=== PATIENT | female | born 1990 | race Caucasian/White ===

== ENCOUNTER → 2017-12-18 | Outpatient (REF) | payer OTHER ==
[2017-12-18 13:30] LABS: HEMATOCRIT 32.3 % (36.0-47.0); HEMOGLOBIN 9.7 g/dl (12.0-15.5); MEAN CORPUSCULAR HEMOGLOBIN 22.9 pg (27.0-33.0); MEAN CORPUSCULAR VOLUME 76.2 fl (80.0-96.0); PLATELET COUNT, AUTOMATED 246 10^3/uL (150-450); RED BLOOD COUNT 4.24 10^6/uL (4.00-5.40); WHITE BLOOD COUNT 6.2 10^3/uL (4.0-10.0)
[2017-12-18 14:04] LABS: HCG, SERUM QUANTITATIVE 25344 MIU/ML
[2017-12-19 10:57] LABS: RUBELLA IgG QUALITATIVE IMMUNE (IMMUNE)
[2017-12-19 11:11] LABS: HBsAg Prenatal NEGATIVE (NEGATIVE)
[2017-12-19 11:27] LABS: HIV 1&2 SCREEN CENTAUR NEGATIVE (NEGATIVE)
[2017-12-19 11:27] LABS: HEPATITIS C VIRUS ABY INDEX 0.1 INDEX (<0.8)
== END ==
LOC: M LAB REF 13:03
DX: O36.80X0 Pregnancy with inconclusive fetal viability, not applicable or unspecified (principal); Z3A.00 Weeks of gestation of pregnancy not specified
CPT/HCPCS: 84702

== ENCOUNTER → 2018-02-10 | Outpatient (REF) | payer OTHER | LOC: M LAB REF 13:06 | DX: Z34.01 Encounter for supervision of normal first pregnancy, first trimester (principal) ==

== ENCOUNTER → 2018-05-25 | Outpatient (CLI) | payer OTHER ==
[2018-05-25 15:28] LABS: HEMATOCRIT 32.5 % (36.0-47.0); HEMOGLOBIN 10.1 g/dl (12.0-15.5); MEAN CORPUSCULAR HEMOGLOBIN 27.1 pg (27.0-33.0); MEAN CORPUSCULAR HGB CONC 31.1 g/dl (32.0-36.5); MEAN CORPUSCULAR VOLUME 87.1 fl (80.0-96.0); PLATELET COUNT, AUTOMATED 162 10^3/uL (150-450); RED BLOOD COUNT 3.73 10^6/uL (4.00-5.40); RED CELL DISTRIBUTION WIDTH 15.9 % (11.5-14.5)
[2018-05-25 22:27] LABS: GLUCOSE CHALLENGE TEST 1 HOUR 88 MG/DL (LESS THAN 140)
== END ==
LOC: M LAB 13:55
DX: Z34.02 Encounter for supervision of normal first pregnancy, second trimester (principal); Z3A.00 Weeks of gestation of pregnancy not specified
CPT/HCPCS: 82950

== ENCOUNTER → 2018-07-21 | Outpatient (REF) | payer OTHER | LOC: M LAB REF 16:23 | DX: Z34.03 Encounter for supervision of normal first pregnancy, third trimester (principal) ==

== ENCOUNTER → 2018-07-28 | Outpatient (REF) | payer OTHER ==
[2018-07-28 17:44] LABS: HEMOGLOBIN 10.8 g/dl (12.0-15.5); MEAN CORPUSCULAR HEMOGLOBIN 24.5 pg (27.0-33.0); MEAN CORPUSCULAR VOLUME 81.6 fl (80.0-96.0); PLATELET COUNT, AUTOMATED 160 10^3/uL (150-450); RED BLOOD COUNT 4.41 10^6/uL (4.00-5.40); RED CELL DISTRIBUTION WIDTH 17.3 % (11.5-14.5)
[2018-07-28 18:00] LABS: ALT/SGPT 14 U/L (12-78); AST/SGOT 20 U/L (7-37); BILIRUBIN,TOTAL 0.3 MG/DL (0.2-1.0); GLOMERULAR FILTRATION RATE > 60.0 (>60); LDH LACTATE DEHYDROGENASE 209 U/L (84-246); URIC ACID 3.9 MG/DL (2.6-6.0)
[2018-07-28 18:34] LABS: TOTAL PROTEIN,RANDOM URINE 18.9 MG/DL (0.0-12.0)
[2018-07-28 18:34] LABS: CREATININE,RANDOM URINE 73.2 MG/DL
== END ==
LOC: M LAB REF 17:00
DX: Z34.03 Encounter for supervision of normal first pregnancy, third trimester (principal); R03.0 Elevated blood-pressure reading, without diagnosis of hypertension; Z3A.00 Weeks of gestation of pregnancy not specified
CPT/HCPCS: 84460

== ENCOUNTER 2018-08-07 20:25 | Outpatient (CLI) | payer OTHER ==
[2018-08-07] MEDS ORDERED: LR 1,000 ML IV (22:30)
[2018-08-07] MEDS ORDERED: LACTATED RINGER'S 1000 ML IV (22:30)
[2018-08-07 22:45] LABS: HEMATOCRIT 34.4 % (36.0-47.0); HEMOGLOBIN 10.3 g/dl (12.0-15.5); MEAN CORPUSCULAR HEMOGLOBIN 24.1 pg (27.0-33.0); MEAN CORPUSCULAR HGB CONC 29.9 g/dl (32.0-36.5); MEAN CORPUSCULAR VOLUME 80.6 fl (80.0-96.0); PLATELET COUNT, AUTOMATED 160 10^3/uL (150-450); RED BLOOD COUNT 4.27 10^6/uL (4.00-5.40); RED CELL DISTRIBUTION WIDTH 18.1 % (11.5-14.5)
[2018-08-07 23:11] LABS: TOTAL PROTEIN,RANDOM URINE 158.1 MG/DL (0.0-12.0)
[2018-08-07 23:16] LABS: ALT/SGPT 15 U/L (12-78); AST/SGOT 19 U/L (7-37); BILIRUBIN,TOTAL 0.2 MG/DL (0.2-1.0); CREATININE FOR GFR 0.65 MG/DL (0.55-1.30); GLOMERULAR FILTRATION RATE > 60.0 (>60); LDH LACTATE DEHYDROGENASE 191 U/L (84-246); URIC ACID 3.6 MG/DL (2.6-6.0)
== END 2018-08-08 00:45 | disposition home or self-care (01) ==
LOC: M LDO 20:25
DX: O47.9 False labor, unspecified (principal); Z3A.39 39 weeks gestation of pregnancy; O99.113 Other diseases of the blood and blood-forming organs and certain disorders involving the immune mechanism complicating pregnancy, third trimester; D64.9 Anemia, unspecified
CPT/HCPCS: 76819

== ENCOUNTER 2018-08-08 17:03 | Inpatient (IN) | payer OTHER ==
[2018-08-08] MEDS: PENICILLIN G POTASSIUM IV 5 MU in D5W MINI-BAG PLUS 100 ML IV (17:57)
[2018-08-08] MEDS: LACTATED RINGER'S 1000 ML IV (17:57)
[2018-08-08] MEDS: LR 1,000 ML IV (18:00)
[2018-08-08 18:08] LABS: HEMOGLOBIN 10.3 g/dl (12.0-15.5); MEAN CORPUSCULAR HEMOGLOBIN 24.6 pg (27.0-33.0); MEAN CORPUSCULAR HGB CONC 31.2 g/dl (32.0-36.5); MEAN CORPUSCULAR VOLUME 78.8 fl (80.0-96.0); PLATELET COUNT, AUTOMATED 197 10^3/uL (150-450); RED BLOOD COUNT 4.19 10^6/uL (4.00-5.40); RED CELL DISTRIBUTION WIDTH 18.4 % (11.5-14.5); WHITE BLOOD COUNT 24.7 10^3/uL (4.0-10.0)
[2018-08-08] MEDS: PROMETHAZINE INJ 25 MG/ML VIAL (J2550) IV (18:42)
[2018-08-08] MEDS: BUTORPHANOL 2 MG/ML INJ (J0595) IV (18:43)
[2018-08-08] MEDS: PENICILLIN G POTASSIUM IV 2.5 MU in APPROPRIATE DILUENT 1 EA IV (22:03)
[2018-08-08] MEDS ORDERED: FENTANYL 2MCG/ML ROPIVACAINE 0.2% IN 0.9% NACL 200ML IVBAG As Ordered (23:29)
[2018-08-09] MEDS: FENTANYL/ROPIVACAINE/NACL BAG 200 ML EPIDURAL (00:25)
[2018-08-09] MEDS: OXYTOCIN DRIP 30 UNITS in APPROPRIATE DILUENT 1 EA IV ×3 (00:41→11:39)
[2018-08-09] MEDS: LR 1,000 ML IV ×4 (02:00→18:07)
[2018-08-09] MEDS: PENICILLIN G POTASSIUM IV 2.5 MU in APPROPRIATE DILUENT 1 EA IV ×2 (02:32→06:08)
[2018-08-09] MEDS ORDERED: ePHEDrine SULFATE 25 MG/5 ML(5MG/ML) SYRINGE IV (06:30)
[2018-08-09] MEDS ORDERED: REFRIGERATOR IV KEYS XX (06:30)
[2018-08-09] MEDS ORDERED: NALOXONE INJ 0.4 MG/1 ML VIAL (J2310) IV ×3 (06:30→09:11)
[2018-08-09] MEDS ORDERED: ONDANSETRON 4MG/2ML VIAL (J2405) IV ×3 (06:30→10:15)
[2018-08-09] MEDS ORDERED: LACTATED RINGER'S 1000 ML IV (06:30)
[2018-08-09] MEDS ORDERED: EPIDURAL/PCA KEYS XX (06:30)
[2018-08-09] MEDS ORDERED: diphenhydrAMINE INJ 50MG/ML VIAL (J1200) IV (06:30)
[2018-08-09] MEDS ORDERED: EPIDURAL COMMENT XX (06:30)
[2018-08-09] MEDS ORDERED: ceFAZolin 2 GM/D5W 50 ML IV BAG (J0690 PER 500MG) As Ordered (08:30)
[2018-08-09] MEDS ORDERED: BICITRA 30ML SOLN UDC As Ordered (08:30)
[2018-08-09] MEDS: BICITRA 30ML SOLN UDC PO (08:40)
[2018-08-09] MEDS: PRENATAL VITAMINS CHEWABLE TABLET PO (09:00)
[2018-08-09] MEDS ORDERED: dexameTHASONE 4 MG/ML 1ML VIAL (J1100) As Ordered (09:11)
[2018-08-09] MEDS ORDERED: MORPHINE PRES-FREE INJ 10 MG/10 ML VIAL (J2274) As Ordered (09:11)
[2018-08-09] MEDS ORDERED: KETOROLAC 60 MG/2 ML VIAL (J1885) As Ordered (09:11)
[2018-08-09] MEDS ORDERED: LIDOCAINE 2% W/EPIN INJ 20ML **PRES FREE As Ordered (09:11)
[2018-08-09] MEDS ORDERED: SODIUM BICARBONATE 8.4% INJ 50 ML SYRINGE As Ordered (09:11)
[2018-08-09] MEDS ORDERED: OXYTOCIN INJ 10 UNITS/ML VIAL (J2590) As Ordered (09:11)
[2018-08-09] MEDS ORDERED: NALBUPHINE HCL 10 MG/ML AMP (J2300) IV ×2 (09:11→10:15)
[2018-08-09] MEDS ORDERED: ONDANSETRON 4MG/2ML VIAL (J2405) As Ordered (09:11)
[2018-08-09] MEDS ORDERED: METOCLOPRAMIDE INJ 10MG/2ML VIAL (J2765) IV (09:11)
[2018-08-09 09:38] LABS: CORD GAS ABE V -1.9; CORD GAS HCO3 V 23.6 MEQ/L; CORD GAS O2 SAT V 70.3 %; CORD GAS PCO2 V 42.6 mmHg; CORD GAS PH V 7.361 UNITS; CORD GAS PO2 V 30.3 mmHg; CORD GAS SBC V 22.2 MEQ/L; CORD GAS TCO2 V 24.9 MEQ/L
[2018-08-09 09:42] LABS: CORD GAS ABE A 0.1; CORD GAS HCO3 A 27.5 MEQ/L; CORD GAS O2 SAT A 55.8 %; CORD GAS PCO2 A 54.4 mmHg; CORD GAS PH A 7.321 UNITS; CORD GAS PO2 A 25.6 mmHg; CORD GAS SBC A 23.4 MEQ/L; CORD GAS TCO2 A 29.1 MEQ/L
[2018-08-09] MEDS ORDERED: OXYTOCIN 30 UNITS IN 0.9% NaCl 500ML IV BAG (J2590) As Ordered ×2 (10:07→10:53)
[2018-08-09] MEDS ORDERED: MOM 30ML SUSPENSION UDC PO (10:15)
[2018-08-09] MEDS ORDERED: fentaNYL 100 MCG/2 ML INJECTION (J3010) IV (10:15)
[2018-08-09] MEDS ORDERED: PERCOCET 5MG/325MG TAB PO (10:15)
[2018-08-09] MEDS ORDERED: METHYLERGONOVINE MALEATE 0.2 MG/ML VIAL (J2210) As Ordered (10:18)
[2018-08-09] MEDS: RHOGAM 300 MCG (1500 IU) INJ (J2790) IM (11:31)
[2018-08-09] MEDS: MEASLES,MUMPS,RUBELLA VACCINE INJ (MMR-II) (90707) SC (11:31)
[2018-08-09] MEDS: miSOPROStol 200 MCG TAB (S0191) PR (11:45)
[2018-08-09] MEDS: ACETAMINOPHEN 500 MG TAB PO (11:47)
[2018-08-09] MEDS: METHYLERGONOVINE MALEATE 0.2 MG/ML VIAL (J2210) IM (11:54)
[2018-08-09] MEDS: AMPICILLIN SOD/SULBACTAM SOD 3 GM in D5W MINI-BAG PLUS 100 ML IV ×2 (15:27→20:48)
[2018-08-09] MEDS: KETOROLAC 30 MG/ML VIAL (J1885) IV ×2 (15:44→20:49)
[2018-08-10] MEDS: AMPICILLIN SOD/SULBACTAM SOD 3 GM in D5W MINI-BAG PLUS 100 ML IV ×3 (02:29→14:11)
[2018-08-10] MEDS: KETOROLAC 30 MG/ML VIAL (J1885) IV (02:30)
[2018-08-10 06:57] LABS: HEMATOCRIT 24.6 % (36.0-47.0); MEAN CORPUSCULAR HEMOGLOBIN 24.7 pg (27.0-33.0); MEAN CORPUSCULAR HGB CONC 30.5 g/dl (32.0-36.5); MEAN CORPUSCULAR VOLUME 80.9 fl (80.0-96.0); PLATELET COUNT, AUTOMATED 126 10^3/uL (150-450); RED BLOOD COUNT 3.04 10^6/uL (4.00-5.40); RED CELL DISTRIBUTION WIDTH 18.3 % (11.5-14.5); WHITE BLOOD COUNT 20.2 10^3/uL (4.0-10.0)
[2018-08-10 07:07] LABS: HEMOGLOBIN 7.5 g/dl (12.0-15.5)
[2018-08-10] MEDS: PRENATAL VITAMINS CHEWABLE TABLET PO (08:18)
[2018-08-10] MEDS: PERCOCET 5MG/325MG TAB PO ×3 (11:44→20:12)
[2018-08-10] MEDS: IBUPROFEN 800 MG TAB PO ×2 (11:44→18:52)
[2018-08-10] MEDS: DOCUSATE SODIUM 100 MG CAP PO (20:12)
[2018-08-11] MEDS: IBUPROFEN 800 MG TAB PO ×2 (04:10→10:59)
[2018-08-11] MEDS: PRENATAL VITAMINS CHEWABLE TABLET PO (08:37)
== END 2018-08-11 11:40 | disposition home or self-care (01) | DRG 540 ==
LOC: M LDO 17:03 → M OBS 08-09 11:01 → M LDI 17:27
PROVIDERS: Advanced Practice Midwife
PROC: 10D00Z1 Extraction of Products of Conception, Low, Open Approach (ICD-10-PCS; principal; 2018-08-09 08:53)
DX: O99.02 Anemia complicating childbirth (principal); O64.0XX0 Obstructed labor due to incomplete rotation of fetal head, not applicable or unspecified; D50.9 Iron deficiency anemia, unspecified; Z3A.39 39 weeks gestation of pregnancy; O99.824 Streptococcus B carrier state complicating childbirth; Z37.0 Single live birth

== ENCOUNTER → 2019-07-12 | Outpatient (REF) | payer OTHER, MEDICAID ==
[~2019-07-12] MED LIST: DOCU100C16; FERR32TA; IBUP1TAB7 PO; PERCOCET PO
[2019-07-12 13:27] LABS: BASO % 0.6 % (0.0-1.0); EOS % 0.2 % (0.0-3.0); HEMATOCRIT 32.3 % (36.0-47.0); LYMPH % 38.9 % (24.0-44.0); MEAN CORPUSCULAR HEMOGLOBIN 19.8 pg (27.0-33.0); MEAN CORPUSCULAR HGB CONC 27.9 g/dl (32.0-36.5); MONO # 0.3 10^3/uL (0.0-0.8); MONO % 4.8 % (0.0-5.0); NEUTROPHILS # 2.9 10^3/uL (1.5-8.5); NEUTROPHILS % 55.1 % (36.0-66.0); PLATELET COUNT, AUTOMATED 244 10^3/uL (150-450); RED BLOOD COUNT 4.55 10^6/uL (4.00-5.40); WHITE BLOOD COUNT 5.2 10^3/uL (4.0-10.0)
[2019-07-12 13:38] LABS: ALBUMIN 4.2 GM/DL (3.2-5.2); ALT/SGPT 17 U/L (12-78); BILIRUBIN,TOTAL 0.4 MG/DL (0.2-1.0); BLOOD UREA NITROGEN 12 MG/DL (7-18); CALCIUM LEVEL 9.2 MG/DL (8.5-10.1); CARBON DIOXIDE LEVEL 26 MEQ/L (21-32); CHLORIDE LEVEL 106 MEQ/L (98-107); CHOLESTEROL LEVEL 137 MG/DL (<200); CHOLESTEROL RISK RATIO 2.362 (<5); CREATININE FOR GFR 0.78 MG/DL (0.55-1.30); FERRITIN 3 NG/ML (8-252); GLOMERULAR FILTRATION RATE > 60.0 (>60); GLUCOSE, FASTING 84 MG/DL (70-100); HDL CHOLESTEROL 58 MG/DL (>40); IRON (FE) 15 UG/DL (50-170); LDL CHOLESTEROL 68 MG/DL (<100); NON-HDL-C 79 MG/DL; POTASSIUM SERUM 4.1 MEQ/L (3.5-5.1); SODIUM LEVEL 137 MEQ/L (136-145); THYROID STIMULATING HORMONE 0.692 uIU/ML (0.358-3.740); TOTAL PROTEIN 7.5 GM/DL (6.4-8.2); TRIGLYCERIDES LEVEL 56 MG/DL (<150)
[2019-07-12 14:03] LABS: TOTAL 25(OH) VITAMIN D 12.2 NG/ML (30.0-100.0)
[2019-07-12 14:04] LABS: VITAMIN B12 LEVEL 187 PG/ML (247-911)
[2019-07-12 14:23] LABS: HEMOGLOBIN A1c 5.1 %
== END ==
LOC: M LAB REF 12:28
PROVIDERS: ATTEND Nurse Practitioner Family
DX: Z00.01 Encounter for general adult medical examination with abnormal findings (principal); D64.9 Anemia, unspecified

== ENCOUNTER → 2019-09-20 | Outpatient (CLI) | payer MEDICAID, OTHER ==
--- NOTE | 2019-09-20 20:09 | REP ---
Clinical: Irregular menstrual cycles. Technique: As abdominal pelvic ultrasound followed by transvaginal examination for better evaluation of the endometrium and adnexa with color Doppler evaluation of the ovaries. Findings: Normal anteverted uterus measures 8.1 x 4.2 x 4.9 cm. Endometrial complex is thickened to 17 mm without discrete endometrial abnormality appreciated. The bilateral ovaries are normal in appearance and vascularity without torsion. The ovary measures 2.2 x 1.3 x 1.2 cm (RI 0.49). Left ovary measures 2.3 x 2.2 x 3.0 cm (RI 0.56). No pelvic fluid or adnexal mass lesion. Bladder is normal and measures 6.5 x 3.6 x 6.0 cm. Impression: Essentially normal pelvic ultrasound. Mildly thickened endometrial complex is nonspecific. No discrete abnormality noted. Electronically Signed by Damian Guerra MD 09/20/2019 08:00 P
== END ==
LOC: M RAD 13:20
PROVIDERS: ATTEND Obstetrics & Gynecology
DX: N92.1 Excessive and frequent menstruation with irregular cycle (principal)

== ENCOUNTER → 2020-04-24 | Outpatient (REF) ==
[~2020-04-24] MED LIST changes: +FERR325T3 PO; +MICO2CRE7 PV; +ONDA4TAB6
== END ==
LOC: M LAB 13:31
PROVIDERS: ATTEND Nurse Practitioner Adult Health
DX: Z00.00 Encounter for general adult medical examination without abnormal findings (principal)

== ENCOUNTER → 2020-07-18 | Outpatient (CLI) | payer OTHER ==
[~2020-07-18] MED LIST changes: -FERR325T3 PO; -MICO2CRE7 PV; -ONDA4TAB6
--- NOTE | 2020-07-18 11:50 | REP ---
INDICATION: PREG W INCONCLUSIVE VIABILITY FILE RM. COMPARISON: None. TECHNIQUE: Real-time sonographic evaluation of gravid uterus performed utilizing transabdominal technique. FINDINGS: There is a single living intrauterine gestation. The estimated gestational age is 8 weeks 4 days based on a crown-rump length of 20 mm, EDC 02/23/2021. heart rate is 165 beats per minute. A yolk sac is also visualized within the gestational sac. No subchorionic hemorrhage is seen. There is a cystic structure in the right ovary probably representing a corpus luteum, measuring approximately 2.2 x 1.9 x 1.5 cm. IMPRESSION: Viable 1st trimester gestation as above. <Electronically signed by Umair Hwang > 07/18/20 1142
== END ==
LOC: M RAD 09:59
PROVIDERS: ATTEND Advanced Practice Midwife
DX: O36.80X0 Pregnancy with inconclusive fetal viability, not applicable or unspecified (principal); Z3A.08 8 weeks gestation of pregnancy

== ENCOUNTER 2020-07-26 12:23 | Emergency (ER) | payer OTHER ==
[~2020-07-26] VITALS: Ht 162.6 cm; Wt 55.7 kg
[2020-07-26] MEDS ORDERED: ONDA4TAB6 (12:43)
[2020-07-26] MEDS ORDERED: FERR325T3 PO (12:43)
[2020-07-26] MEDS ORDERED: METOCLOPRAMIDE INJ 10MG/2ML VIAL (J2765 PER 1) IV ONE (13:00)
[2020-07-26] MEDS ORDERED: NS 1,000 ML IV ONE (13:00)
[2020-07-26 13:27] LABS: BASO % 0.2 % (0.0-1.0); HEMATOCRIT 34.1 % (36.0-47.0); HEMOGLOBIN 10.1 g/dl (12.0-15.5); LYMPH # 1.2 10^3/uL (1.5-5.0); LYMPH % 11.8 % (24.0-44.0); MEAN CORPUSCULAR HEMOGLOBIN 22.4 pg (27.0-33.0); MEAN CORPUSCULAR HGB CONC 29.6 g/dl (32.0-36.5); MEAN CORPUSCULAR VOLUME 75.8 fl (80.0-96.0); MONO # 0.4 10^3/uL (0.0-0.8); MONO % 3.5 % (0.0-5.0); NEUTROPHILS # 8.7 10^3/uL (1.5-8.5); PLATELET COUNT, AUTOMATED 230 10^3/uL (150-450); WHITE BLOOD COUNT 10.3 10^3/uL (4.0-10.0)
--- NOTE | 2020-07-26 14:04 | REP ---
INDICATION: pelvic cramping, vaginal bleeding, 9 wks . COMPARISON: None. TECHNIQUE: Transabdominal scanning is performed. FINDINGS: Scanning demonstrates a single living intrauterine gestation in a free-floating lie. heart rate is recorded at 176 beats per minute. The embryonic pole measures 2.6 cm in crown-rump length. This corresponds with a gestational age estimate is 9 weeks 2 days. There is a 2.5 cm cyst in the maternal right ovary. No complication is identified. IMPRESSION: Viable single intrauterine gestation at 9 weeks 2 days by crown-rump length. ELFEGO by sonography February 26, 2021. No complication is seen. <Electronically signed by Janusz Guerra > 07/26/20 1400
[2020-07-26 14:11] LABS: BLOOD UREA NITROGEN 8 MG/DL (7-18); CALCIUM LEVEL 9.4 MG/DL (8.5-10.1); CARBON DIOXIDE LEVEL 22 MEQ/L (21-32); CHLORIDE LEVEL 106 MEQ/L (98-107); CREATININE FOR GFR 0.63 MG/DL (0.55-1.30); GLOMERULAR FILTRATION RATE > 60.0 (>60); GLUCOSE, FASTING 93 MG/DL (70-100); HCG, SERUM QUANTITATIVE 189189 MIU/ML; POTASSIUM SERUM 3.8 MEQ/L (3.5-5.1); SODIUM LEVEL 137 MEQ/L (136-145)
[2020-07-26 15:15] LABS: CHLAMYDIA DNA AMPLIFICATION NEGATIVE (NEGATIVE); GC DNA AMPLIFICATION NEGATIVE (NEGATIVE)
[2020-07-26] MEDS ORDERED: MICO2CRE7 PV (15:47)
[2020-07-26 16:07] VITALS: BP 108/55
== END 2020-07-26 16:15 | disposition home or self-care (01) ==
LOC: M ED 12:23
DX: O26.891 Other specified pregnancy related conditions, first trimester (principal); R10.2 Pelvic and perineal pain; O21.9 Vomiting of pregnancy, unspecified; O23.591 Infection of other part of genital tract in pregnancy, first trimester; Z3A.09 9 weeks gestation of pregnancy; Z79.899 Other long term (current) drug therapy
CPT/HCPCS: 76801; 80048; 81001; 84702; 85025; 87210; 87661; 93976; 96361; 96374; 99284; J2765

== ENCOUNTER → 2020-09-12 | Outpatient (REF) | payer OTHER ==
[~2020-09-12] MED LIST changes: +FERR325T3 PO; +MICO2CRE7 PV; +ONDA4TAB6
== END ==
LOC: M LAB 21:59
PROVIDERS: ATTEND Physician Assistant Medical
DX: Z11.59 Encounter for screening for other viral diseases (principal)

== ENCOUNTER → 2020-09-14 | Outpatient (CLI) | payer SELFPAY | LOC: M LABSMTC 11:03 | PROVIDERS: ATTEND Pediatrics | DX: Z20.828 Contact with and (suspected) exposure to other viral communicable diseases (principal) ==

== ENCOUNTER → 2020-10-12 | Outpatient (CLI) | payer OTHER ==
--- NOTE | 2020-10-12 19:15 | REP ---
INDICATION: ANATOMY COMPARISON: None. TECHNIQUE: Transabdominal obstetrical ultrasound with color Doppler evaluation. FINDINGS: Examination demonstrates a single live intrauterine in cephalic presentation. motion is identified by technologist. Placenta is noted anterior and grade 1 without evidence for placenta previa or abruption. Amniotic fluid volume is normal. Cervix measures 3.0 cm in length and appears closed.. Gestational age by LMP 20 weeks 1 day with ELFEGO 02/28/2021. Gestational age by current measurements 21 weeks 0 days with ELFEGO 02/22/2021. FHR equals 149 beats per minute. BPD: 5.1 cm 21 weeks 3 days HC: 18.4 cm there is 20 weeks 5 days AC: 16.4 cm 21 weeks 3 days FL: 3.4 cm 20 weeks 5 days HL: 3.3 cm 20 weeks 6 days HC/AC: 1.12 Estimated weight 399 grams (greater than 97th percentile based on age by LMP and 1st ultrasound). Anatomical assessment demonstrates normal structures including cranium, choroid plexus, cavum, cerebellum/posterior fossa, facial features, lungs, four-chamber heart/ventricular outflow tracts, diaphragm, stomach, cord insertion/three-vessel cord, kidneys/bladder, spine, and extremities. IMPRESSION: Single live intrauterine in cephalic presentation. Greater than expected estimated weight requires correlation. Anatomical assessment is complete and normal. <Electronically signed by Damian Guerra > 10/12/201911
== END ==
LOC: M WHC 10:57
PROVIDERS: ATTEND Obstetrics & Gynecology
DX: Z34.82 Encounter for supervision of other normal pregnancy, second trimester (principal); Z3A.20 20 weeks gestation of pregnancy

== ENCOUNTER → 2020-11-28 | Outpatient (CLI) | payer OTHER ==
[2020-11-28 11:07] LABS: HEMATOCRIT 29.7 % (36.0-47.0); HEMOGLOBIN 8.6 g/dl (12.0-15.5); MEAN CORPUSCULAR HEMOGLOBIN 22.6 pg (27.0-33.0); PLATELET COUNT, AUTOMATED 153 10^3/uL (150-450); RED BLOOD COUNT 3.81 10^6/uL (4.00-5.40); WHITE BLOOD COUNT 13.4 10^3/uL (4.0-10.0)
== END ==
LOC: M LAB 09:15
PROVIDERS: ATTEND Obstetrics & Gynecology
DX: Z34.82 Encounter for supervision of other normal pregnancy, second trimester (principal); Z3A.00 Weeks of gestation of pregnancy not specified

== ENCOUNTER 2021-01-03 20:08 | Outpatient (CLI) | payer OTHER ==
[~2021-01-03] VITALS: Ht 162.6 cm; Wt 71.6 kg
[2021-01-03 20:27] VITALS: BP 118/78
[2021-01-03] MEDS ORDERED: PRENTAB9 PO (20:36)
[2021-01-03] MEDS ORDERED: TUMS500C PO (20:36)
[2021-01-03 22:05] LABS: HEMATOCRIT 29.3 % (36.0-47.0); HEMOGLOBIN 8.6 g/dl (12.0-15.5); MEAN CORPUSCULAR HEMOGLOBIN 22.2 pg (27.0-33.0); MEAN CORPUSCULAR HGB CONC 29.4 g/dl (32.0-36.5); MEAN CORPUSCULAR VOLUME 75.7 fl (80.0-96.0); PLATELET COUNT, AUTOMATED 132 10^3/uL (150-450); RED BLOOD COUNT 3.87 10^6/uL (4.00-5.40); WHITE BLOOD COUNT 13.5 10^3/uL (4.0-10.0)
[2021-01-03 22:37] LABS: ALBUMIN 2.5 GM/DL (3.2-5.2); ALT/SGPT 11 U/L (12-78); BILIRUBIN,TOTAL 0.3 MG/DL (0.2-1.0); BLOOD UREA NITROGEN 6 MG/DL (7-18); CALCIUM LEVEL 7.9 MG/DL (8.5-10.1); CARBON DIOXIDE LEVEL 25 MEQ/L (21-32); CHLORIDE LEVEL 106 MEQ/L (98-107); CREATININE FOR GFR 0.52 MG/DL (0.55-1.30); GLOMERULAR FILTRATION RATE > 60.0 (>60); GLUCOSE, FASTING 105 MG/DL (70-100); POTASSIUM SERUM 3.1 MEQ/L (3.5-5.1); SODIUM LEVEL 138 MEQ/L (136-145); TOTAL PROTEIN 5.7 GM/DL (6.4-8.2)
[2021-01-03 22:42] VITALS: BP 120/77
== END 2021-01-03 22:53 | disposition home or self-care (01) ==
LOC: M LDO 20:08
PROVIDERS: ATTEND Advanced Practice Midwife
DX: O99.013 Anemia complicating pregnancy, third trimester (principal); Z3A.32 32 weeks gestation of pregnancy

== ENCOUNTER → 2021-01-08 | Outpatient (CLI) | payer OTHER ==
[~2021-01-08] MED LIST changes: +PRENTAB9 PO; +TUMS500C PO
[2021-01-08 13:07] LABS: HEMATOCRIT 33.5 % (36.0-47.0); HEMOGLOBIN 9.7 g/dl (12.0-15.5); PLATELET COUNT, AUTOMATED 145 10^3/uL (150-450); RED BLOOD COUNT 4.41 10^6/uL (4.00-5.40)
[2021-01-08 13:34] LABS: PERCENT SATURATION 9.7 % (13.2-45.0)
== END ==
LOC: M LAB 12:14
PROVIDERS: ATTEND Obstetrics & Gynecology
DX: D64.9 Anemia, unspecified (principal)

== ENCOUNTER → 2021-01-24 | Outpatient (REF) | payer OTHER | LOC: M LAB REF 15:58 | PROVIDERS: ATTEND Advanced Practice Midwife | DX: Z34.83 Encounter for supervision of other normal pregnancy, third trimester (principal) ==

== ENCOUNTER 2021-02-22 05:13 | Inpatient (IN) | payer OTHER ==
[~2021-02-22] VITALS: Ht 164.5 cm; Wt 73.0 kg
[2021-02-22] VITALS (9 sets, daily range): BP systolic 109–141; BP diastolic 59–91
[~2021-02-22 05:13] MED LIST changes: +OMEP-218
[2021-02-22] MEDS ORDERED: BICITRA 30ML SOLN UDC PO ONE (05:35)
[2021-02-22] MEDS ORDERED: LR 1,000 ML IV SCH ×2 (05:35→09:10)
[2021-02-22] MEDS ORDERED: ceFAZolin SOD 2 GM in IV 1 EA IV ONE (06:00)
[2021-02-22 06:20] LABS: HEMATOCRIT 35.2 % (36.0-47.0); HEMOGLOBIN 10.2 g/dl (12.0-15.5); MEAN CORPUSCULAR HEMOGLOBIN 21.8 pg (27.0-33.0); MEAN CORPUSCULAR VOLUME 75.2 fl (80.0-96.0); PLATELET COUNT, AUTOMATED 146 10^3/uL (150-450); RED BLOOD COUNT 4.68 10^6/uL (4.00-5.40)
[2021-02-22] MEDS ORDERED: METOCLOPRAMIDE INJ 10MG/2ML VIAL (J2765 PER 1) IV PRN (07:48)
[2021-02-22] MEDS ORDERED: ONDANSETRON 4MG/2ML VIAL IV PRN ×2 (07:48→09:10)
[2021-02-22] MEDS ORDERED: NALOXONE INJ 0.4MG/1ML VIAL (J2310 PER 1MG) IV PRN ×2 (07:48)
[2021-02-22] MEDS ORDERED: NALBUPHINE HCL 10 MG/ML AMP (J2300) IV PRN ×2 (07:48→09:10)
[2021-02-22] MEDS ORDERED: diphenhydrAMINE 50MG/ML VIAL (J1200) IV PRN (07:48)
[2021-02-22 08:28] LABS: CORD GAS ABE A 0.7; CORD GAS HCO3 A 27.2 MEQ/L; CORD GAS O2 SAT A 36.4 %; CORD GAS PCO2 A 50.8 mmHg; CORD GAS PH A 7.347 UNITS; CORD GAS PO2 A 17.6 mmHg; CORD GAS SBC A 23.5 MEQ/L; CORD GAS TCO2 A 28.8 MEQ/L
[2021-02-22 08:29] LABS: CORD GAS ABE V 0.9; CORD GAS HCO3 V 25.7 MEQ/L; CORD GAS O2 SAT V 66.6 %; CORD GAS PCO2 V 41.5 mmHg; CORD GAS PH V 7.409 UNITS; CORD GAS PO2 V 28.6 mmHg; CORD GAS SBC V 24.5 MEQ/L; CORD GAS TCO2 V 26.9 MEQ/L
[2021-02-22] MEDS ORDERED: PHENYLephrine 500MCG 5ML (100MCG/ML) SYRINGE As Ordered ONE (08:29)
[2021-02-22] MEDS ORDERED: OXYTOCIN INJ 10 UNITS/ML VIAL (J2590) As Ordered ONE (08:29)
[2021-02-22] MEDS ORDERED: MORPHINE PRES-FREE INJ 10 MG/10 ML VIAL (J2274) As Ordered ONE (08:29)
[2021-02-22] MEDS ORDERED: ONDANSETRON 4MG/2ML VIAL As Ordered ONE (08:29)
[2021-02-22] MEDS ORDERED: dexameTHASONE 4 MG/ML 1ML VIAL (J1100 PER 1MG) As Ordered ONE (08:29)
[2021-02-22] MEDS ORDERED: KETOROLAC 60MG 2ML VIAL As Ordered ONE (08:29)
[2021-02-22] MEDS ORDERED: MEASLES,MUMPS,RUBELLA VACCINE INJ (MMR-II) (90707) SC SCH (08:45)
[2021-02-22] MEDS ORDERED: SIMETHICONE 80MG CHEW TAB PO PRN (08:45)
[2021-02-22] MEDS ORDERED: RHOGAM 300 MCG (1500 IU) INJ (J2790) IM SCH (08:45)
[2021-02-22] MEDS ORDERED: OXYTOCIN DRIP 30 UNITS in IV 1 EA IV SCH (08:45)
[2021-02-22] MEDS ORDERED: OXYTOCIN 30 UNITS IN 0.9% NaCl 500ML IV BAG (J2590) As Ordered ONE (08:57)
[2021-02-22] MEDS: DOCUSATE SODIUM 100MG CAPSULE PO SCH ×2 (09:00→21:07)
[2021-02-22] MEDS: PRENATAL VITAMINS CHEWABLE TABLET PO SCH (09:00)
[2021-02-22] MEDS ORDERED: fentaNYL 100 MCG/2 ML INJECTION (J3010) IV PRN (09:10)
--- NOTE | 2021-02-22 10:58 | RO ---
OPERATIVE NOTE DATE OF OPERATION: 02/22/2021 INDICATION: Rachel is a 30-year-old female with a history of prior section who is being admitted at term for elective repeat section. Patient also desires permanent tubal sterilization. PREOPERATIVE DIAGNOSES: 1. Term for elective repeat section. 2. Desires permanent tubal sterilization. POSTOPERATIVE DIAGNOSES: 1. Term for elective repeat section. 2. Desires permanent tubal sterilization. 3. Nuchal cord x1. PROCEDURES: 1. Repeat section. 2. Revision of old scar. 3. Bilateral salpingectomy. SURGEON: Dong Daly DO. BARREL RIB MATTING MACHINE OPERATOR: Dr. Bruce. ANESTHESIA: Spinal. COMPLICATIONS: None. ESTIMATED BLOOD LOSS: 600 mL. FINDINGS: Live male , occiput transverse position, 9 and 9, weight 6 pounds 8 ounces, nuchal cord x1. Normal appearing tubes and ovaries. DESCRIPTION OF PROCEDURE: After obtaining informed consent, patient was taken to the operating room where spinal anesthetic was found to be adequate. She was then draped and prepped in the usual sterile fashion in the supine position. At this point, elliptical incision was made over her old scar. This was carried down to the fascia. Fascia was incised in the midline fashion and carried through laterally. Superior aspect of the fascia was then grasped with a Chevy clamp, tented up, and dissected off the rectus muscle sharply. The inferior aspect was dissected off in a similar fashion. Rectus muscle in the midline fashion. Peritoneum was identified. Peritoneal cavity entered bluntly with the help of MY BAR[employer] R[employer] MATTING MACHINE OPERATOR A low transverse uterine incision was made. Infant was delivered in atraumatic fashion. Nuchal cord was clamped and cut, and infant was handed over to awaiting warmer. Cord blood and cord gas were sent. Placenta removed manually. Uterus cleared of all clot and debris. Uterine incision was then repaired in two separate layers of 0 Vicryl sutures. All superficial bleeders were coagulated. At this point, attention turned to the fallopian tube where the fimbriated ends were identified. Using a [place], the tube was held in tension, and two large Janae's were placed, and the entire tube was removed using the Bovie. We then closed the mesosalpinx with 3-0 chromic. Both sides done in a similar fashion. Good hemostasis noted. Both tubes dropped back into the abdomen. Pelvis copiously irrigated with normal saline and suctioned out. Attention turned to the peritoneum which was closed in a running fashion using 2-0 Vicryl. Fascia closed in two separate segments of 0 Vicryl sutures. All superficial bleeders coagulated, and the skin was reapproximated in a subcuticular fashion using 3-0 Vicryl on a Pete. Steri-Strip placed. Patient tolerated the procedure well. She was then transferred to the recovery room in stable condition. cc: [id number]
[2021-02-22] MEDS: PERCOCET 5MG/325MG TAB PO PRN (22:53)
[2021-02-23 02:00] VITALS: BP 118/77
[2021-02-23] MEDS: PERCOCET 5MG/325MG TAB PO PRN ×3 (05:12→22:52)
[2021-02-23 06:00] VITALS: BP 110/70
[2021-02-23 07:31] LABS: HEMATOCRIT 32.5 % (36.0-47.0); HEMOGLOBIN 9.6 g/dl (12.0-15.5); MEAN CORPUSCULAR HEMOGLOBIN 22.3 pg (27.0-33.0); MEAN CORPUSCULAR HGB CONC 29.5 g/dl (32.0-36.5); MEAN CORPUSCULAR VOLUME 75.4 fl (80.0-96.0); PLATELET COUNT, AUTOMATED 147 10^3/uL (150-450); RED BLOOD COUNT 4.31 10^6/uL (4.00-5.40); WHITE BLOOD COUNT 22.1 10^3/uL (4.0-10.0)
--- NOTE | 2021-02-23 07:35 | IPNPDOC ---
Progress Note Date of Service: Feb 23, 2021 Day#: 1 Progress Note SUBJECT: Doing well without complaints. Ambulating, voiding and pain is well- controlled. Reports minimal lochia. OBJECTIVE: VITAL SIGNS: Within normal limits, afebrile. Alert and oriented times three. Abdomen: Fundus firm at U-2. Soft, NTTP. Incision: dressed Ext: neg calf tenderness. ASSESSMENT: /postoperative day #1 status post delivery. Recovering in stable condition. PLAN: 1. Continue routine /postoperative care 2. Discharge plans for tomorrow VS, I&O, 24H, Fishbone Vital Signs/I&O Vital Signs Date Time Temp Pulse Resp B/P (MAP) Pulse Ox O2 Delivery O2 Flow Rate FiO2 02/23/21 06:00 97.7 63 16 110/70 (83) 98 Room Air I&O- Last 24 Hours up to 6 AM 02/23/21 06:00 Intake Total 1010 ml Output Total 1600 ml Balance -590 ml Laboratory Data 24H LABS Laboratory Tests 2 02/22/21 08:19: Cord Arterial Blood pH 7.347, Cord Arterial Blood PCO2 50.8, Cord Arterial Blood PO2 17.6, Cord Arterial Blood HCO3 27.2, Cord Arterial Blood Total CO2 28.8, Cord Arterial Blood Base Excess 0.7, Cord Arterial Base Excess (Standard 23.5, C ord Arterial Bld Oxygen Saturation 36.4, Cord Venous Blood pH 7.409, Cord Venous Blood PCO2 41.5, Cord Venous Blood PO2 28.6, Cord Venous Blood HCO3 25.7, Cord Venous Blood Total CO2 26.9, Cord Venous Base Excess (Actual) 0.9, Cord Venous Base Excess (Standard) 24.5, Cord Venous Blood Oxygen Saturation 66.6 02/22/21 11:04: Serology Scanned Report Hepatitis B Testing 02/23/21 06:56: Nucleated Red Blood Cells % (auto) 0.0 CBC/BMP Laboratory Tests 02/23/21 06:56 SYEDA GREGORY MD. Feb 23, 2021 07:35
[2021-02-23] MEDS: DOCUSATE SODIUM 100MG CAPSULE PO SCH ×2 (08:10→20:44)
[2021-02-23] MEDS: PRENATAL VITAMINS CHEWABLE TABLET PO SCH (08:10)
[2021-02-23] MEDS ORDERED: BOOSTRIX/ADACEL VACCINE (DIPHTH/PERTUSS/ACELL/TETANUS) 0.5ML SYR IM ONE (09:00)
[2021-02-23 09:50] VITALS: BP 122/74
[2021-02-23 14:00] VITALS: BP 139/84
[2021-02-23] MEDS: IBUPROFEN 800 MG TAB PO SCH (15:45)
[2021-02-23 18:00] VITALS: BP 129/75
[2021-02-23 22:00] VITALS: BP 124/80
[2021-02-24] MEDS: IBUPROFEN 800 MG TAB PO SCH ×2 (01:07→08:56)
[2021-02-24 02:00] VITALS: BP 121/83
[2021-02-24 06:00] VITALS: BP 121/83
[2021-02-24] MEDS ORDERED: MOM 30ML SUSPENSION UDC PO ONE (06:35)
--- NOTE | 2021-02-24 06:42 | DS.PDOC ---
Discharge Summary General Date of Admission Feb 22, 2021 at 05:13 Date of Discharge 02/24/2021 Discharge Summary PROCEDURES PERFORMED DURING STAY: Repeat section with bilateral tubal ligation ADMITTING DIAGNOSES: 1. Repeat at term 2. Satisfied parity DISCHARGE DIAGNOSES: 1. Repeat at term 2. Satisfied parity COMPLICATIONS/CHIEF COMPLAINT: Term , Elective Repeat Section. HISTORY OF PRESENT ILLNESS: 30 yo G2 now P2 admitted by Dr Daly for repeat section HOSPITAL COURSE: Adequate pain management. VSS. Tolerating diet. Ambulating, voiding and passing flatus. DISCHARGE MEDICATIONS: Please see below. ALLERGIES: Please see below. PHYSICAL EXAMINATION ON DISCHARGE: VITAL SIGNS: Please see below. GENERAL: No distress, happy HEENT: WNL NECK: Supple CARDIOVASCULAR EXAMINATION: HRR, normotensive RESPIRATORY EXAMINATION: Clear and unlabored ABDOMINAL EXAMINATION: Fundus firm, bulky dressing removed. Steri strips intact, scant old drainage. No S/S infection EXTREMITIES: Equal strength and motion SKIN: Intact NEUROLOGICAL EXAMINATION: Grossly intact PSYCHIATRIC EXAMINATION: Appropriate LABORATORY DATA: Please see below. PROGNOSIS: Good ACTIVITY: As tolerated DIET: As tolerated DISCHARGE PLAN: Home today with family DISPOSITION: Home. DISCHARGE INSTRUCTIONS: 1. Pelvic rest. Observe wound daily, wash and pat dry. Call with fever, nausea, vomiting, chills, foul lochia, wound exudate. Continue vitamins, oral medications as directed. RTO 2 wks and 6 wks DISCHARGE CONDITION: Stable TIME SPENT ON DISCHARGE: Greater than 10 minutes. Vital Signs/I&Os Vital Signs Date Time Temp Pulse Resp B/P (MAP) Pulse Ox O2 Delivery O2 Flow Rate FiO2 02/24/21 06:00 97.4 76 16 121/83 (96) 99 Room Air I&O- Last 24 Hours up to 6 AM 02/24/21 06:00 Intake Total 200 ml Balance 200 ml Laboratory Data Labs 24H Laboratory Tests 2 02/23/21 06:56: Nucleated Red Blood Cells % (auto) 0.0 CBC/BMP Laboratory Tests 02/23/21 06:56 Discharge Medications Scheduled Calcium Carbonate (Tums) 200 Mg Tab.chew, 500 MG PO PRN, (Reported) Ferrous Sulfate (Ferrous Sulfate) 325 Mg Tablet.dr, 1 TAB PO BID, (Reported) Omeprazole (Omeprazole) 20 Mg Capsule., PRN, (Reported) No.137/Iron/Folic Acd ( Vitamin Tablet) 1 Each Tablet, 1 TAB PO DAILY, (Reported) Allergies Coded Allergies: pumpkin (Verified Allergy, Severe, anaphylaxsis, 02/15/21) Kerrie Reyes Feb 24, 2021 06:42
[2021-02-24] MEDS ORDERED: PERCOCET PO (06:44)
[2021-02-24] MEDS ORDERED: IBUP80TA PO (06:44)
[2021-02-24] MEDS: PRENATAL VITAMINS CHEWABLE TABLET PO SCH (08:55)
[2021-02-24] MEDS: DOCUSATE SODIUM 100MG CAPSULE PO SCH (08:55)
== END 2021-02-24 12:15 | disposition home or self-care (01) | DRG 540 ==
LOC: M LDI 05:13 → M OBS 10:03
PROVIDERS: ADMIT Obstetrics & Gynecology; ATTEND Obstetrics & Gynecology
PROC: 0UT70ZZ Resection of Bilateral Fallopian Tubes, Open Approach (ICD-10-PCS; 2021-02-22)
PROC: 10D00Z1 Extraction of Products of Conception, Low, Open Approach (ICD-10-PCS; principal; 2021-02-22 07:30)
DX: O34.211 Maternal care for low transverse scar from previous cesarean delivery (principal); O69.81X0 Labor and delivery complicated by cord around neck, without compression, not applicable or unspecified; Z3A.39 39 weeks gestation of pregnancy; Z37.0 Single live birth; Z30.2 Encounter for sterilization

== ENCOUNTER → 2024-12-15 | Outpatient (REF) | payer OTHER ==
[~2024-12-15] MED LIST changes: +IBUP80TA PO; +OMEP-173; -OMEP-218; +ONDA-282; -ONDA4TAB6
== END ==
LOC: M LAB REF 13:50
PROVIDERS: ATTEND Physician Assistant Medical
DX: B34.9 Viral infection, unspecified (principal)